=== PATIENT | male | born 1995 | race Caucasian/White ===

== ENCOUNTER 2024-08-07 03:43 | Emergency (ER) | payer SELFPAY ==
[~2024-08-07] VITALS: Ht 177.8 cm; Wt 124.0 kg
[2024-08-07 03:45] VITALS: TEMP 98.4; O2SAT 98
[2024-08-07 04:30] VITALS: BP 88/49; PULSE 86; RESP 16; O2SAT 95
[2024-08-07] MEDS ORDERED: SODIUM CHLORIDE 0.9% 1,000 ML IV ONE (05:30)
[2024-08-07] MEDS ORDERED: ONDANSETRON HCL 4MG/2ML INJ IV ONE (05:30)
== END 2024-08-07 07:15 | disposition left against medical advice (07) ==
LOC: ER 03:43 → CANBEDREQ 11:41
DX: G93.40 Encephalopathy, unspecified (principal); F10.129 Alcohol abuse with intoxication, unspecified; Y90.9 Presence of alcohol in blood, level not specified
CPT/HCPCS: 99283; J7030; Z7610 ×2